=== PATIENT | female | born 1990 | race African-American/Black ===

== ENCOUNTER 2020-12-08 15:54 | Emergency (ER) | payer SELFPAY ==
[~2020-12-08] VITALS: Ht 162.6 cm; Wt 61.0 kg
[2020-12-08 17:45] VITALS: BP 111/80
[2020-12-08] MEDS ORDERED: IBUPROFEN 600MG TABLET PO ONE (17:45)
== END 2020-12-08 18:39 | disposition home or self-care (01) ==
LOC: ER 15:54
DX: S63.501A Unspecified sprain of right wrist, initial encounter (principal); F12.10 Cannabis abuse, uncomplicated; W22.8XXA Striking against or struck by other objects, initial encounter; Y93.89 Activity, other specified; Y92.89 Other specified places as the place of occurrence of the external cause; Y99.8 Other external cause status
CPT/HCPCS: 73110; 81025; 99283